=== PATIENT | male | born 1970 | race Caucasian/White ===

== ENCOUNTER 2018-12-18 20:45 | Emergency (ER) | payer BC ==
[2018-12-18 21:12] VITALS: BP 138/95
--- NOTE | 2018-12-18 21:30 | UC ---
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 At home BP reading this ni 136/95. Incidental: pt feels pressure in left ear " -feels fine. no cp/sob. not lightheahed or dizzy. feels fine. not anxious. doesnt get anxius w/ blood draws. -eats a lot of salt, canned food, processed foods and dinner -hasnt taken NSAIDs or decongestents -spain salways had nml BPs -last Drs visit 1 yr ago CPE [place]/. has home BP cuf but hasnt used it. - History of Current Complaint Chief Complaint: UCGeneralIllness Stated Complaint: ELEVATED BLOOD PRESSURE Time Seen by Provider: 12/18/18 21:12 Pain Intensity: 0 - Allergy/Home Medications Allergies/Adverse Reactions: Allergies Allergy/AdvReac Type Severity Reaction Status Date / Time No Known Allergies Allergy Verified 12/18/18 21:01 Home Medications: Home Medications NK [No Home Medications Reported] 12/18/18 [History Confirmed 12/18/18] PMH/Surg Hx/FS Hx/Imm Hx Previously Healthy: Yes - Surgical History Surgical History: None - Family History Known Family History: Positive: Cardiac Disease - Social History Alcohol Use: None Substance Use Type: Excessive Caffeine Substance Use Comment - Amount & Last Used: 6 mugs coffee per day Smoking Status (MU): Never Smoked Tobacco Review of Systems All Other Systems Reviewed And Are Negative: Yes Constitutional: Positive: Negative Skin: Positive: Negative Eyes: Positive: Negative ENT: Positive: Negative, Ear Ache Respiratory: Positive: Negative Cardiovascular: Positive: Negative Gastrointestinal: Positive: Negative Genitourinary: Positive: Negative Motor: Positive: Negative Neurovascular: Positive: Negative Musculoskeletal: Positive: Negative Neurological: Positive: Negative Psychological: Positive: Negative Is Patient Immunocompromised?: No Physical Exam Triage Information Reviewed: Yes Appearance: Well-Appearing, No Pain Distress, Well-Nourished - mildly anxious appearing. Vital Signs: Initial Vital Signs Temp 98.2 F 12/18/18 21:02 Pulse 96 12/18/18 21:02 Resp 16 12/18/18 21:02 BP 138/95 12/18/18 21:02 Pulse Ox 98 12/18/18 21:02 Vital Signs Reviewed: Yes Eye Exam: Normal ENT Exam: Normal ENT: Positive: Pharynx normal, Uvula midline, Other - Rt TM nml, left TM w/ mild serous fluid. no erythema/bulging or perf. Negative: Nasal congestion, Sinus tenderness Dental Exam: Normal Neck exam: Normal Respiratory Exam: Normal Respiratory: Positive: Lungs clear, Normal breath sounds, No respiratory distress, No accessory muscle use. Negative: Crackles, Rhonchi, Stridor, Wheezing Cardiovascular Exam: Normal Cardiovascular: Positive: RRR, No Murmur, Pulses Normal, Brisk Capillary Refill Abdominal Exam: Normal Musculoskeletal Exam: Normal Neurological Exam: Normal Psychological Exam: Normal Skin Exam: Normal Course/Dx - Course Course Of Treatment: Counselled and reassured extensively -Rpt manual BP by myself left Lg cuff 124/94 -no need for BP meds at this time -recommend life style changes - decrease Na - process,d canned food and restaurant food -avoid all nsaids and decongetents -drinks 6 mugs coffee daily - decr caffeine. -go to ER w BP of either > 180/120 -FU PCP in 1 wk -understood me well - Differential Dx - Multi-Symptom Differential Diagnoses: Other - HTN - Diagnoses Provider Diagnosis: Elevated blood pressure reading in office without diagnosis of hypertension Discharge - Sign-Out/Discharge Documenting (check all that apply): Patient Departure All imaging exams completed and their final reports reviewed: No Studies - Discharge Plan Condition: Stable Disposition: HOME Patient Education Materials: Hypertension (ED), Low-Sodium Diet (ED), DASH Eating Plan (ED), Serous Otitis Media (ED) Referrals: Arben Chambers DO [Primary Care Provider] - 5 Days Additional Instructions: You do not have a diagnosis of hypertension at this time. You should continue to monitor it and follow up with your PCP in 5 days. You should decreaes the amount of salt & caffeine in your diet, canned/processed and restaurant foods. Limit alcohol. Avoid all NSAID meds (ibuprofen/aleve/advil) and decongestents -check your home BPs -Go to ER w/ any BPs of either > 180/120 or any symptoms of headache, chest pain , shortness of breath, dizziness. -you can use flonase nasal spray for the eustachean tube dysfunction. - Billing Disposition and Condition Condition: STABLE Disposition: Home
== END 2018-12-18 22:10 | disposition home or self-care (01) ==
LOC: UCCORT 20:45
DX: R03.0 Elevated blood-pressure reading, without diagnosis of hypertension (principal)
CPT/HCPCS: 99201; G0463